=== PATIENT | female | born 1995 | race Two or more races ===

== ENCOUNTER 2023-05-29 20:23 | Emergency (ER) | payer OTHER, SELFPAY ==
[2023-05-29 20:27] VITALS: BP 134/53; BP 134/82; PULSE 64; PULSE 76; RESP 18; TEMP 36.3; O2SAT 100; O2SAT 99; BMI 36.0
--- NOTE | 2023-05-29 21:07 | ED.SOB ---
HPI - SOB/Dyspnea General Chief Complaint: Dyspnea Stated Complaint: SOB Time Seen by Provider: 05/29/23 20:25 History of Present Illness HPI Narrative: Patient is a 27-year-old female with a history of having left the stressful events in her life. Patient recently moved from [place]. She is homeless here in [place]. Currently living in a [place] [facility]. She has a young child with her. Feel that she has lots of anxiety. Lots of stressor. Has a history of asthma. History of hypertension. Patient currently has a counselor that she sees on a weekly basis. There is no family history of coronary artery disease at a young age. There was no sudden in the family. He does not have any history of diabetes, hypercholesterolemia, smoking, MS. Did not have any recent travel. Did not have any leg swelling. Did not have any history of blood clots. Currently is not on control. Related Data Allergies Allergy/AdvReac Type Severity Reaction Status Date / Time No Known Allergies Allergy Verified 05/29/23 20:37 Review of Systems Review of Systems: Positive episode of shortness of breath Yes all other systems are reviewed and are negative [facility] Past Medical History Attestation statement: The following information was validated with the patient. Social History Social History Alcohol intake: never Smoked in Last 30 Days: No Use of substances other than those prescribed or required for medical reasons: No Advance Directives: No Advance Directives Information Provided: No Physical Exam Vital Signs: Vital Signs: Last Vital Signs Temp 97.4 F 05/29/23 20:27 Pulse 64 05/29/23 20:27 Resp 18 05/29/23 20:27 BP 134/53 L 05/29/23 20:27 Pulse Ox 99 05/29/23 20:27 O2 Del Method Room Air 05/29/23 20:27 BMI result Body Mass Index 36.0 Appearance: Alert. Oriented X3. No acute distress. Eyes: Pupils equal, round and reactive to light. ENT: Pharynx normal. Neck: Normal inspection. Neck supple. No lymph nodes noted. No crepitus CVS: Normal heart rate and rhythm. Pulses normal. Normal S1 and S2 Respiratory: No respiratory distress. Breath sounds normal. No Wheezing. No rales Abdomen: Soft and nontender. No rigidity. No distention. good BS x4 Skin: Skin warm and dry. Normal skin color. Normal skin turgor. Extremities: No lower extremity edema. Neurovascular intact to all extremities. No Lacerations. No Rash Neuro: Oriented X 3. No motor deficit. No sensory deficit. Moving all extermities. No slurred speech Medical Decision Making Medical Decision Making [facility] Narrative: Well-appearing no acute distress O2 sat is 100% on room air. Patient's lungs are clear. My interpretation of patient's EKG showed a heart rate of 60 sinus ER QRS QT within normal limits there is some sinus arrhythmia noted. Patient in no distress. Symptoms most likely secondary to anxiety. Will nevertheless checked patient's hemoglobin check patient's electrolytes. Will monitor. Tried to the stress patient by talking to her. Seems like it is working. Symptomatic we she feels improved. Will offer her food. Differential Diagnosis Differential Diagnoses: The differential diagnosis associated with the presentation includes Anxiety, anemia, electrolyte disturbance, Lab Data [facility] Lab Attestation statement: I reviewed the patient's lab results. 05/29/23 20:47 05/29/23 20:48 Labs: Lab Results 05/29/23 05/29/23 05/29/23 Range/Units 20:47 20:48 20:48 WBC 5.7 (4.8-10.8) X10*3/uL RBC 4.19 L (4.20-5.50) X10*6/uL Hgb 11.1 L (12.0-16.0) g/dl Hct 35.0 L (37.0-47.0) % MCV 83.5 (80.0-98.0) fL MCH 26.5 L (27.0-33.0) pg MCHC 31.7 (31.0-35.0) g/dl RDW 14.0 (11.0-16.0) % Plt Count 183 (160-400) X10*3/uL MPV 12.0 (9.4-12.3) fL Immature Gran % (Auto) 0.2 (0.0-0.4) % Neut % (Auto) 62.2 (45-73) % Lymph % (Auto) 29.6 (20-40) % Dickey % (Auto) 6.9 (2-11) % Eos % (Auto) 0.7 (0-4) % Baso % (Auto) 0.4 (0-2) % Lymph # (Auto) 1.7 (1.2-4.9) X10*3/uL Dickey # (Auto) 0.4 (0.1-1.2) X10*3/uL Eos # (Auto) 0.0 (0.0-0.4) X10*3/uL Baso # (Auto) 0.0 (0.0-0.2) X10*3/uL Abs Immat Gran (auto) 0.01 (0.00-0.03) X10*3/uL Absolute Neuts (auto) 3.5 (2.0-8.3) x10*3/uL Absolute Nucleated RBC 0.000 (0.0-0.012) X10*3/uL Nucleated RBC % (auto) 0.0 (0.0-0.2) /100WBC Sodium 140 (135-145) mmol/L Potassium 3.9 (3.3-5.1) mmol/L Chloride 111 H (96-108) mmol/L Carbon Dioxide 19 L (22-29) mmol/L Anion Gap 14 (12-20) BUN 12 (9-16) mg/dL Creatinine 0.60 (0.5-1.4) mg/dL Estim Creat Clear Calc 171.8 Estimated GFR > 60 Random Glucose 99 (60-115) mg/dL Calcium 9.2 (8.4-10.2) mg/dL Beta HCG, Quant < 2 mIU/mL Independent Interpretation I performed an independent interpretation of an: EKG Interpretation: Sinus heart rate is 60 OH QRS QT within normal limits there is no acute ST segment elevation Discharge Plan Discharge Clinical Impression: Anxiety Patient Disposition: Home, Self-Care Instructions: Anxiety (ED) Referrals: [facility] [Provider Group] - 05/31/23
== END 2023-05-29 21:52 | disposition home or self-care (01) ==
PROVIDERS: Emergency Provider Emergency Medicine Emergency Medical Services
DX: F41.9 Anxiety disorder, unspecified (principal); R06.00 Dyspnea, unspecified; Z59.01 Sheltered homelessness; J45.909 Unspecified asthma, uncomplicated
CPT/HCPCS: 36415; 80048; 80307; 84702; 85025; 93005; 99283; 99285